=== PATIENT | female | born 1985 | race Caucasian/White ===

== ENCOUNTER 2018-08-14 15:24 | Day surgery (SDC) | payer BC, OTHER ==
[~2018-08-14] VITALS: Ht 162.6 cm; Wt 70.0 kg
[~2018-08-14 15:24] MED LIST: ALBU8.5H8 INH; BENEDRYL PO; DOCU240C31 PO; IBUP-1222 PO; ONDA4TAB10 PO; OXYC-302 PO; PREN1TAB60 PO
[2018-08-14] MEDS ORDERED: SODIUM CHLORIDE 0.9% 1,000 ML IV ONE (15:54)
[2018-08-14] MEDS ORDERED: SODIUM CHLORIDE FLUSH 10ML SYR IVF ONE (16:00)
[2018-08-14 16:17] LABS: BASOPHILS # (AUTO) 0.03 x10^3/uL (0-0.1); BASOPHILS % (AUTO) 1 % (0-1); EOSINOPHILS # (AUTO) 0.07 x10^3/uL (0-0.4); EOSINOPHILS % (AUTO) 1 % (1-7); LYMPHOCYTES % (AUTO) 33 % (22-44); MD NO; MEAN CORPUSCULAR HEMOGLOBIN 31.8 pg (27.0-34.8); MEAN CORPUSCULAR HGB CONC 33.8 g/dL (32.4-35.8); MEAN CORPUSCULAR VOLUME 94.2 fL (80-100); MEAN PLATELET VOLUME 7.8 fL (7.4-10.4); MONOCYTES # (AUTO) 0.44 x10^3/uL (0.2-0.8); MONOCYTES % (AUTO) 7 % (2-9); NEUTROPHILS # (AUTO) 3.82 x10^3/uL (1.8-6.8); NEUTROPHILS % (AUTO) 59 % (42-75); PLATELET COUNT 220 x10^3/uL (130-400); RED BLOOD COUNT 3.97 x10^6/uL (3.82-5.3); RED CELL DISTRIBUTION WIDTH 12.9 % (9.6-15.2)
[2018-08-14 16:28] LABS: ALBUMIN 4.1 g/dL (3.4-5.0); ANION GAP 9 mmol/L (5-15); CALCIUM 8.6 mg/dL (8.5-10.1); CHLORIDE 108 mmol/L (98-107); CREATININE 0.75 mg/dL (0.55-1.02)
[2018-08-14] MEDS ORDERED: SODIUM CHLORIDE 0.9% 1,000 ML IV SCH (16:31)
[2018-08-14] MEDS ORDERED: ONDANSETRON 2MG/ML, 2ML IVPush PRN (17:00)
[2018-08-14] MEDS ORDERED: LABETALOL 5MG/ML, 20ML IVPush PRN (17:00)
[2018-08-14] MEDS ORDERED: POLYETHYLENE GLYCOL 17 GM PACKET PO PRN (17:00)
[2018-08-14] MEDS ORDERED: ONDANSETRON ODT 4 MG PO PRN (17:00)
[2018-08-14] MEDS ORDERED: MIDAZOLAM 1 MG/ML, 2ML ONE (17:16)
[2018-08-14] MEDS ORDERED: FENTANYL PF 250 MCG/5ML ONE (17:17)
[2018-08-14 17:25] LABS: FREE T4 (FREE THYROXINE) 1.21 ng/dL (0.76-1.46); THYROID STIMULATING HORMONE 3.72 mIU/L (0.358-3.740)
[2018-08-14] MEDS ORDERED: ONDANSETRON 2MG/ML, 2ML IV PRN ×2 (17:30→21:30)
[2018-08-14] MEDS ORDERED: OXYcodone 5 MG/5 ML ORAL.SOL UDC PO PRN ×2 (17:30→21:30)
[2018-08-14] MEDS ORDERED: FENTANYL PF 100 MCG/2ML IV PRN (17:30)
[2018-08-14] MEDS ORDERED: ACETAMINOPHEN 325 MG TABLET PO PRN ×2 (17:30→21:30)
[2018-08-14] MEDS ORDERED: HYDROmorphone 2 MG/ML, 1ML IV PRN (17:30)
[2018-08-14] MEDS ORDERED: MEPERIDINE/PF 25MG/0.5ML IVPush PRN (17:30)
[2018-08-14] MEDS ORDERED: LABETALOL 5MG/ML, 20ML IV PRN (17:30)
[2018-08-14] MEDS ORDERED: PROMETHAZINE 25 MG/ML, 1ML IV PRN (17:30)
[2018-08-14] MEDS ORDERED: hydrALAzine 20 MG/ML, 1ML IV PRN (17:30)
[2018-08-14] MEDS ORDERED: SILVER NITRATE STICK TP ONE (17:31)
[2018-08-14] MEDS ORDERED: BUPIVACAINE/PF-EPI 0.25% 1:200K ONE (17:31)
[2018-08-14] MEDS ORDERED: PROPOFOL 10 MG/ML, 20ML ONE (17:51)
[2018-08-14] MEDS ORDERED: ROCURONIUM 10 MG/ML,10ML ONE (17:51)
[2018-08-14] MEDS ORDERED: ONDANSETRON 2MG/ML, 2ML ONE ×2 (17:51→19:21)
[2018-08-14] MEDS ORDERED: DEXAMETHASONE 4 MG/ML, 1ML ONE (18:08)
[2018-08-14] MEDS ORDERED: CEFAZOLIN 1,000 MG ONE (18:10)
[2018-08-14] MEDS ORDERED: BUPIVACAINE/PF-EPI 0.25% 1:200K IM ONE (18:24)
[2018-08-14] MEDS ORDERED: SODIUM CHLORIDE FLUSH 10ML SYR IVF PRN (19:00)
[2018-08-14] MEDS ORDERED: ACETAMINOPHEN 650 MG/20.3 ML UDC ONE (19:20)
[2018-08-14] MEDS ORDERED: OXYcodone 5 MG/5 ML ORAL.SOL UDC ONE (19:20)
[2018-08-14] MEDS ORDERED: FENTANYL PF 100 MCG/2ML ONE (19:22)
[2018-08-14] MEDS ORDERED: PROMETHAZINE 25 MG/ML, 1ML ONE (19:38)
[2018-08-14 20:30] VITALS: BP 102/66
[2018-08-14 20:45] VITALS: BP 106/66
[2018-08-14 21:00] VITALS: BP 107/72
[2018-08-14] MEDS ORDERED: ONDANSETRON ODT 4 MG PO SCH (21:00)
[2018-08-14] MEDS ORDERED: PANTOPRAZOLE 20MG TABLET PO ONE (21:00)
[2018-08-14] MEDS ORDERED: TEMPLATE NON-FORMULARY MED. (Albuterol Sulfate (Proair Hfa) 2 PUFFS) INH SCH (21:00)
[2018-08-14] MEDS ORDERED: KETOROLAC 30 MG/1 ML IV SCH (21:30)
[2018-08-14] MEDS ORDERED: D5%-LACTATED RINGERS 1,000 ML IV SCH (21:30)
[2018-08-14] MEDS ORDERED: PROMETHAZINE 25 MG/ML, 1ML IM PRN (21:30)
[2018-08-14] MEDS ORDERED: morphine SULFATE 10 MG/ML, 1ML IV PRN (21:30)
[2018-08-14] MEDS ORDERED: OXYcodone/APAP 5/325MG TABLET PO PRN (21:30)
[2018-08-14] MEDS ORDERED: OXYC-302 PO ×2 (21:32→21:33)
[2018-08-14] MEDS ORDERED: IBUP-1222 PO (21:34)
[2018-08-14] MEDS ORDERED: DOCU-131 PO (21:35)
[2018-08-15] MEDS ORDERED: SENNA/DOCUSATE TABLET PO SCH (09:00)
[2018-08-15] MEDS ORDERED: [UNRECOGNIZED DRUG - OTHER] PO SCH (09:00)
[2018-08-15] MEDS ORDERED: PRENATAL VITS W CA FE FA PO SCH (09:00)
== END 2018-08-14 22:22 | disposition home or self-care (01) ==
LOC: ED 16:30 → UNDOADMIN 16:31 → OR 16:31 → EDIP 16:31 → ED 17:03 → OR 18:55 → EDIP 20:38 → 4NOR 20:38 → UNDODISIN 22:10 → OR 22:22
PROVIDERS: ATTEND Pediatrics Neonatal-Perinatal Medicine
DX: O00.102 Left tubal pregnancy without intrauterine pregnancy (principal); O13.1 Gestational [pregnancy-induced] hypertension without significant proteinuria, first trimester; Z3A.01 Less than 8 weeks gestation of pregnancy; J45.909 Unspecified asthma, uncomplicated; Z91.013 Allergy to seafood; Z72.89 Other problems related to lifestyle; Z79.899 Other long term (current) drug therapy
CPT/HCPCS: 36415; 59151; 74018; 76801; 80048; 82040; 84439; 84443; 84702; 85025; 86850; 86900; 88305; J0690; J1100; J2250; J2405; J2550; J2704; J3010; G0378